=== PATIENT | male | born 1980 | race American Indian/Alaskan Native ===

== ENCOUNTER 2016-11-12 19:18 | Emergency (ER) | payer OTHER ==
[2016-11-12 19:51] VITALS: BP 108/50
[2016-11-12] MEDS ORDERED: ZOFRAN ODT PO ONE (22:47)
[2016-11-12] MEDS ORDERED: NORCO 7.5/325 PO ONE (22:47)
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
== END 2016-11-12 23:17 | disposition home or self-care (01) ==
LOC: ED 19:18
DX: G44.319 Acute post-traumatic headache, not intractable (principal); M54.6 Pain in thoracic spine; M79.1 Myalgia; M54.2 Cervicalgia; M54.5 Low back pain; V89.2XXA Person injured in unspecified motor-vehicle accident, traffic, initial encounter; Y93.89 Activity, other specified; Y99.8 Other external cause status; Y92.89 Other specified places as the place of occurrence of the external cause
CPT/HCPCS: 99282; Q0162

== ENCOUNTER 2018-05-01 16:23 | Emergency (ER) | payer SELFPAY ==
[2018-05-01 16:35] VITALS: BP 132/88
[2018-05-01] MEDS ORDERED: MOTRIN PO ONE (20:20)
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
== END 2018-05-01 21:10 | disposition home or self-care (01) ==
LOC: ED 16:23
DX: L03.116 Cellulitis of left lower limb (principal); F12.10 Cannabis abuse, uncomplicated
CPT/HCPCS: 99282

== ENCOUNTER 2018-05-28 02:53 | Emergency (ER) | payer SELFPAY ==
[2018-05-28 05:26] VITALS: BP 103/69
--- NOTE | 2018-05-28 05:54 | Emergency Department Report ---
Abscess Boil HPI - HPI Chief Complaint: Animal Bite Stated Complaint: ANIMAL BITE Time Seen by Provider: 05/28/18 05:49 Location: Lower Extremity Severity: Mild History: Yes Pain, Yes Insect Bite, No Fever, No Purulent Drainage, No Numbness , No Foreign Body, No Previous History HPI: Left lateral hip infected insect bite erythema pain swelling Home Medications: Previous Rx's Medication Instructions Recorded Last Taken Type Ibuprofen [Motrin] 800 mg PO Q8HR PRN #15 tablet 11/12/16 Unknown Rx traMADol [Ultram 50 MG tab] 50 mg PO Q6HR PRN #15 tablet 11/12/16 Unknown Rx Cephalexin [Keflex] 500 mg PO TID #30 capsule 05/01/18 Unknown Rx Ibuprofen 800 mg PO TID PRN #30 tablet 05/01/18 Unknown Rx Mupirocin [Bactroban 2% OINT] 1 applic TP TID 14 Days #1 tube 05/01/18 Unknown Rx diphenhydrAMINE [Benadryl CAP] 25 mg PO Q8HR PRN #30 capsule 05/01/18 Unknown Rx Acetaminophen/Codeine [Tylenol 1 tab PO Q6H PRN 3 Days #12 tab 05/28/18 Unknown Rx /Codeine # 3 tab] Sulfamethoxazole/Trimethoprim 1 each PO BID 10 Days #20 tablet 05/28/18 Unknown Rx [Bactrim DS TAB] diphenhydrAMINE [Benadryl CAP] 25 mg PO Q6HR PRN #30 capsule 05/28/18 Unknown Rx Allergies/Adverse Reactions: Allergies Allergy/AdvReac Type Severity Reaction Status Date / Time No Known Allergies Allergy Verified 11/12/16 19:48 ED Review of Systems ROS: Stated complaint: ANIMAL BITE Other details as noted in HPI Constitutional: denies: chills, fever Eyes: denies: eye pain, eye discharge, vision change ENT: denies: ear pain, throat pain Respiratory: denies: cough, shortness of breath, wheezing Cardiovascular: denies: chest pain, palpitations Endocrine: no symptoms reported Gastrointestinal: denies: abdominal pain, nausea, diarrhea Genitourinary: denies: urgency, dysuria Musculoskeletal: denies: back pain, joint swelling, arthralgia Skin: lesions (left latera hip abscess ). denies: rash Neurological: denies: headache, weakness, paresthesias Psychiatric: denies: anxiety, depression Hematological/Lymphatic: denies: easy bleeding, easy bruising ED Past Medical Hx - Past Medical History Previous Medical History?: No - Surgical History Past Surgical History?: No - Social History Smoking Status: Current Every Day Smoker Substance Use Type: Marijuana - Medications Home Medications: Home Medications Medication Instructions Recorded Confirmed Last Taken Type Ibuprofen [Motrin] 800 mg PO Q8HR PRN #15 tablet 11/12/16 Unknown Rx traMADol [Ultram 50 MG tab] 50 mg PO Q6HR PRN #15 tablet 11/12/16 Unknown Rx Cephalexin [Keflex] 500 mg PO TID #30 capsule 05/01/18 Unknown Rx Ibuprofen 800 mg PO TID PRN #30 tablet 05/01/18 Unknown Rx Mupirocin [Bactroban 2% OINT] 1 applic TP TID 14 Days #1 tube 05/01/18 Unknown Rx diphenhydrAMINE [Benadryl CAP] 25 mg PO Q8HR PRN #30 capsule 05/01/18 Unknown Rx Acetaminophen/Codeine [Tylenol 1 tab PO Q6H PRN 3 Days #12 tab 05/28/18 Unknown Rx /Codeine # 3 tab] Sulfamethoxazole/Trimethoprim 1 each PO BID 10 Days #20 tablet 05/28/18 Unknown Rx [Bactrim DS TAB] diphenhydrAMINE [Benadryl CAP] 25 mg PO Q6HR PRN #30 capsule 05/28/18 Unknown Rx ED Abscess Boil Physical Exam - Exam General: Vital signs noted. No distress. Alert and acting appropriately. Front/Back of Body, Lg (Color): 1 - Left lateral hip infected insect bite to include erythema mild fluctuant one to touch Size: 2 cm Exam: Yes Tenderness, Yes Fluctuance, Yes Surrounding Cellulites/Erythema, Yes Normal Neurologic Exam, Yes Normal Circulation, No Lymphangitis, No Crepitation , No Heart Murmur Exam: left lateral hip abscess, 1x1 cm erythema fluctuant no drainage warm to touch no fever , I & D Note - I & D Note I & D Note: pt refuse I&D of this small abscess ED Course Vital Signs 05/28/18 05/28/18 04:42 05:22 Temperature 98.6 F 98.6 F Pulse Rate 65 65 Respiratory 16 18 Rate Blood Pressure 102/69 103/69 O2 Sat by Pulse 98 98 Oximetry Critical care attestation.: If time is entered above; I have spent that time in minutes in the direct care of this critically ill patient, excluding procedure time. ED Medical Decision Making - Radiology Data Radiology results: pending, report reviewed, image reviewed - Medical Decision Making this is an infected insect bite with mild cellulit no driange, pt refused I&D plan: bactrim po , tylenol #3 prn pain , follow up with [facility]. ED Disposition Clinical Impression: Infected insect bite Qualifiers: Encounter type: initial encounter Qualified Code(s): W57.XXXA - Bitten or stung by nonvenomous insect and other nonvenomous arthropods, initial encounter Disposition: TO HOME OR SELFCARE Is pt being admited?: No Does the pt Need Aspirin: No Condition: Good Prescriptions: Acetaminophen/Codeine [Tylenol /Codeine # 3 tab] 1 tab PO Q6H PRN 3 Days #12 tab PRN Reason: Pain , Severe (7-10) diphenhydrAMINE [Benadryl CAP] 25 mg PO Q6HR PRN #30 capsule PRN Reason: Itching Sulfamethoxazole/Trimethoprim [Bactrim DS TAB] 1 each PO BID 10 Days #20 tablet Referrals: PRIMARY CARE, [Primary Care Provider] - 3-5 Days Forms: Work/School Release Form(ED) Time of Disposition: 06:15
== END 2018-05-28 06:15 | disposition home or self-care (01) ==
LOC: ED 02:53
DX: S70.262A Insect bite (nonvenomous), left hip, initial encounter (principal); F12.10 Cannabis abuse, uncomplicated; F17.200 Nicotine dependence, unspecified, uncomplicated; Z79.899 Other long term (current) drug therapy; W57.XXXA Bitten or stung by nonvenomous insect and other nonvenomous arthropods, initial encounter; Y93.89 Activity, other specified; Y99.8 Other external cause status; Y92.89 Other specified places as the place of occurrence of the external cause
CPT/HCPCS: 99282

== ENCOUNTER 2018-05-30 11:36 | Emergency (ER) | payer SELFPAY ==
--- NOTE | 2018-05-30 12:51 | Emergency Department Report ---
ED Recheck HPI - General Chief Complaint: Recheck/Abnormal Lab/Rx Stated Complaint: REACTION TO ABX Time Seen by Provider: 05/30/18 11:51 Source: patient Mode of arrival: Ambulatory Limitations: No Limitations - History of Present Illness Initial Comments: this is a 38-year-old male nontoxic in appearance but no signs of distress presents to the ER for medication change. Patient stated that he has been diagnosed with a cellulitis and received Bactrim which causes his stomach to have cramping sensation. Patient stated that he'll took 2 pills and stopped and ever since he stopped his pain went away. Patient currently denies any abdominal pain, chest pain, shortness of breath, fever, chills, nausea, vomiting , chest pain. Patient denies any allergies or Past medical history. Patient stated that Keflex works better for her and the Bactrim. Symptoms Since Prior Visit: no new symptoms, improved Associated Symptoms: none. denies: fever, chills, chest pain, shortness of breath, rash, malaise, [place], abdominal pain - Related Data Previous Rx's Medication Instructions Recorded Last Taken Type Ibuprofen [Motrin] 800 mg PO Q8HR PRN #15 tablet 11/12/16 Unknown Rx traMADol [Ultram 50 MG tab] 50 mg PO Q6HR PRN #15 tablet 11/12/16 Unknown Rx Cephalexin [Keflex] 500 mg PO TID #30 capsule 05/01/18 Unknown Rx Ibuprofen 800 mg PO TID PRN #30 tablet 05/01/18 Unknown Rx Mupirocin [Bactroban 2% OINT] 1 applic TP TID 14 Days #1 tube 05/01/18 Unknown Rx diphenhydrAMINE [Benadryl CAP] 25 mg PO Q8HR PRN #30 capsule 05/01/18 Unknown Rx Acetaminophen/Codeine [Tylenol 1 tab PO Q6H PRN 3 Days #12 tab 05/28/18 Unknown Rx /Codeine # 3 tab] Sulfamethoxazole/Trimethoprim 1 each PO BID 10 Days #20 tablet 05/28/18 Unknown Rx [Bactrim DS TAB] diphenhydrAMINE [Benadryl CAP] 25 mg PO Q6HR PRN #30 capsule 05/28/18 Unknown Rx Cephalexin [Keflex] 500 mg PO TID #21 capsule 09/27/18 Unknown Rx Allergies Allergy/AdvReac Type Severity Reaction Status Date / Time No Known Allergies Allergy Verified 11/12/16 19:48 ED Review of Systems ROS: Stated complaint: REACTION TO ABX Other details as noted in HPI Constitutional: denies: chills, fever Eyes: denies: eye pain, eye discharge, vision change ENT: denies: ear pain, throat pain Respiratory: denies: cough, shortness of breath, wheezing Cardiovascular: denies: chest pain, palpitations Endocrine: no symptoms reported Gastrointestinal: denies: abdominal pain, nausea, diarrhea Genitourinary: denies: urgency, dysuria Musculoskeletal: denies: back pain, joint swelling, arthralgia Skin: denies: rash, lesions Neurological: denies: headache, weakness, paresthesias Psychiatric: denies: anxiety, depression Hematological/Lymphatic: denies: easy bleeding, easy bruising ED Past Medical Hx - Past Medical History Previous Medical History?: No - Surgical History Past Surgical History?: No - Social History Smoking Status: Never Smoker Substance Use Type: Marijuana - Medications Home Medications: Home Medications Medication Instructions Recorded Confirmed Last Taken Type Ibuprofen [Motrin] 800 mg PO Q8HR PRN #15 tablet 11/12/16 Unknown Rx traMADol [Ultram 50 MG tab] 50 mg PO Q6HR PRN #15 tablet 11/12/16 Unknown Rx Cephalexin [Keflex] 500 mg PO TID #30 capsule 05/01/18 Unknown Rx Ibuprofen 800 mg PO TID PRN #30 tablet 05/01/18 Unknown Rx Mupirocin [Bactroban 2% OINT] 1 applic TP TID 14 Days #1 tube 05/01/18 Unknown Rx diphenhydrAMINE [Benadryl CAP] 25 mg PO Q8HR PRN #30 capsule 05/01/18 Unknown Rx Acetaminophen/Codeine [Tylenol 1 tab PO Q6H PRN 3 Days #12 tab 05/28/18 Unknown Rx /Codeine # 3 tab] Sulfamethoxazole/Trimethoprim 1 each PO BID 10 Days #20 tablet 05/28/18 Unknown Rx [Bactrim DS TAB] diphenhydrAMINE [Benadryl CAP] 25 mg PO Q6HR PRN #30 capsule 05/28/18 Unknown Rx Cephalexin [Keflex] 500 mg PO TID #21 capsule 05/30/18 Unknown Rx ED Physical Exam - General Limitations: No Limitations General appearance: alert, in no apparent distress - Head Head exam: Present: atraumatic, normocephalic - Eye Eye exam: Present: normal appearance - ENT ENT exam: Present: mucous membranes moist - Neck Neck exam: Present: normal inspection - Respiratory Respiratory exam: Present: normal lung sounds bilaterally. Absent: respiratory distress - Cardiovascular Cardiovascular Exam: Present: regular rate, normal rhythm, normal heart sounds. Absent: bradycardia, tachycardia, irregular rhythm, systolic murmur, diastolic murmur, rubs, gallop - GI/Abdominal GI/Abdominal exam: Present: soft, normal bowel sounds. Absent: distended, tenderness, guarding, rebound, rigid, diminished bowel sounds, hyperactive bowel sounds, hypoactive bowel sounds, mass, bruit, pulsatile mass, hernia - Rectal Rectal exam: Present: deferred - Extremities Exam Extremities exam: Present: normal inspection, full ROM, tenderness, normal capillary refill, other (no abscess noted but still has some redness of left hip area) - Back Exam Back exam: Present: normal inspection - Neurological Exam Neurological exam: Present: alert, oriented X3 - Psychiatric Psychiatric exam: Present: normal affect, normal mood - Skin Skin exam: Present: warm, dry, intact, normal color. Absent: rash ED Course Vital Signs 05/30/18 11:42 Temperature 98.2 F Pulse Rate 78 Respiratory 18 Rate Blood Pressure 126/83 O2 Sat by Pulse 97 Oximetry - Reevaluation(s) Reevaluation #1: 05/30/18 12:48 Patient is speaking in full sentences with no signs of distress noted. Critical care attestation.: If time is entered above; I have spent that time in minutes in the direct care of this critically ill patient, excluding procedure time. ED Disposition Clinical Impression: Medication course changed Cellulitis Qualifiers: Site of cellulitis: extremity Site of cellulitis of extremity: lower extremity Laterality: left Qualified Code(s): L03.116 - Cellulitis of left lower limb Disposition: - TO HOME OR SELFCARE Is pt being admited?: No Does the pt Need Aspirin: No Condition: Stable Instructions: Cellulitis (ED) Additional Instructions: Follow-up with a primary care doctor in 3-5 days or if symptoms worsen and continue return to emergency room as soon as possible. Prescriptions: Cephalexin [Keflex] 500 mg PO TID #21 capsule Referrals: PRIMARY CARE, [Primary Care Provider] - 3-5 Days AMBER YANG MD [Staff Physician] - 3-5 Days [facility] [Outside] - 3-5 Days [facility] [Outside] - 3-5 Days
[2018-05-30 13:02] VITALS: BP 128/76
== END 2018-05-30 13:00 | disposition home or self-care (01) ==
LOC: ED 11:36
DX: L03.116 Cellulitis of left lower limb (principal); F12.90 Cannabis use, unspecified, uncomplicated
CPT/HCPCS: 99282